=== PATIENT | male | born 1985 | race Caucasian/White ===

== ENCOUNTER 2017-08-17 07:17 | Emergency (ER) | payer MEDICAID, SELFPAY ==
[2017-08-17 07:18] VITALS: BP 115/61; PULSE 112; RESP 18; TEMP 37.1; O2SAT 97; BMI 21.2
[2017-08-17] MEDS: Cephalexin 250 MG Capsule 500 MG PO (07:49)
[2017-08-17] MEDS: Smz/Tmp Ds Tablet 1 TABLET PO (07:49)
[2017-08-17] MEDS: Diphth,Pertuss(Acell),Tet Vac 0.5 ML Vial IM (07:49)
--- NOTE | 2017-08-17 08:01 | ED.DCSUM_ITS ---
- ER Visit Summary Date of Service: 08/17/17 Chief Complaint: Painful red left index finger status post injury 5 days ago History of Present Illness: The patient is a 32 M who is right-handed presents with pain swelling and redness left index finger. Onset 5 days ago after injury. He complains of pain and pressure. He denies paresthesia or anesthesia. Tetanus is unknown. He reports no allergies to antibiotics. He is on no immunosuppressive agents. He denies a traumatic fever, murmur, SBE, IV drug use or be an immune suppressed. Physical Examination: Vital signs are noted. He is afebrile. Patient has a subcutaneous abscess dorsal surface left index finger over the proximal phalanx. There is erythema and fluctuance. There is no lymphangitis, epitrochlear or axillary lymphadenopathy. He does not have pain with passive flexion or extension of the digit. There is no pain to palpation over the extensor and decide tendon dorsal surface of the hand. Capillary refill is normal. Sensation is normal. Test Results: None Emergency Department Course and Treatment: Tetanus immunization was updated. He received 1 tablet of Bactrim DS and 1 capsule of cephalexin 500 mg p.o. The area was prepped draped sterile manner. The area was anesthetized by digital block and local infiltration. An incision was made with 15 blade. There was free flow of thick purulent material. Blunt dissection was undertaken with more drainage appreciated. The cavity was irrigated. A wick was placed. The wound was dressed. Treatment Plan: Prescription for Bactrim DS and cephalexin 500 mg [address] referral to Dr[address] Mcallister who was on-call at the time patient arrived. Has been informed to call office today to be seen in 2 days for wound check. Disposition: Discharged to home in stable and improved condition Impression: 1. Subcutaneous abscess left index finger status post I&D This note was generated with [employer] dictation software. It may contain incorrect words, spelling, and punctuation that were not noted in review of the chart prior to signing ED Disposition - Plan for ED Patient: Disposition: Home or Assisted Living Chief Complaint: Abscess Instructions: ED Abscess IandD Prescriptions: Smz/Tmp Ds [Bactrim Ds] 1 tab PO BID #14 tab Cephalexin [Keflex] 500 mg PO 4X/DAY #28 cap Referrals: Care Physician,No Primary [Primary Care Provider] - Ewelina Mcallister DO [STAFF PHYSICIAN] - 2 Days for wound check
[2017-08-17 08:12] VITALS: PULSE 122; RESP 18; O2SAT 100
[2017-08-17] MEDS: Naproxen 250 MG Tablet 500 MG PO (08:20)
--- NOTE | 2017-08-17 08:24 | ED.RN ---
0815-Dr. Tyler notified of patient c/o pain. Verbal order received for pain medication prior to departing ED.
== END 2017-08-17 08:22 | disposition home or self-care (01) ==
LOC: ED 08:03
PROVIDERS: Emergency Provider Emergency Medicine
DX: L02.512 Cutaneous abscess of left hand (principal); B96.89 Other specified bacterial agents as the cause of diseases classified elsewhere; Z72.0 Tobacco use
CPT/HCPCS: 26010; 10060; 90715; 99281

== ENCOUNTER 2017-09-12 10:13 | Emergency (ER) | payer MEDICAID, SELFPAY ==
[2017-09-12 10:15] VITALS: BP 103/50; PULSE 109; RESP 16; TEMP 36.4; O2SAT 98; BMI 22.0
--- NOTE | 2017-09-12 10:34 | EKG12_ITS ---
Test Reason : MENTAL HEALTH Blood Pressure : / mmHG Vent. Rate : 079 BPM Atrial Rate : 079 BPM P-R Int : 138 ms QRS Dur : 088 ms QT Int : 364 ms P-R-T Axes : 066 070 072 degrees QTc Int : 417 ms Normal sinus rhythm Normal ECG Confirmed by BG GRAY, OLIVIA ([id number]), editorial intern BRISA BREWER ([id number]) on 09/16/2017 12:56:16 PM Referred By: PETER Confirmed By:OLIVIA PEDERSON MD
--- NOTE | 2017-09-12 10:42 | RAD_ITS ---
STUDY: X-RAY CHEST REASON FOR EXAM: Male, 32 years old. Chest pain TECHNIQUE: Single AP portable view of the chest. COMPARISON: None. FINDINGS: The lungs are clear and expanded. There is no demonstrated pleural abnormality. Normal size heart. Normal mediastinum and candice. Normal visualized pulmonary arteries. Normal visualized aortic arch and descending thoracic aorta. Normal visualized thoracic spine. Normal visualized ribs, clavicles, and shoulders. There is no demonstrated abnormality of the visualized soft tissue structures of the upper abdomen. RAD/Chest 1 View (Portable) IMPRESSION: Normal x-ray examination of the chest. Electronically Signed: Leidy Alba MD at 11:41 EDT Tel , Service support ,
[2017-09-12 10:53] LABS: Absolute Lymphocyte Count 1.74 X10^3/ul (0.83-4.51); Absolute Neutrophil Count 7.2 X10^3/uL (2.0-7.7); Basophil# 0.03 X10^3/uL; Basophil% 0.3 % (0-1); Eosinophil# 0.41 X10^3/uL; Hematocrit 45.6 % (40-54); Hemoglobin 15.5 g/dl (13.0-16.5); Lymphocyte # 1.74 X10^3/ul (4.0); Lymphocyte % 16.9 % (19-41); Mean Corpuscular Hgb 31.1 pg (27.0-32.0); Mean Corpuscular Volume 91.4 fL (80-94); Mean Platelet Vol. 10.2 fl (6.2-12.0); Monocyte# 0.85 X10^3/uL; Monocyte% 8.3 % (0-10); Neutrophil # 7.17 X10^3/uL (2.7-7.7); Neutrophil % 69.6 % (47-70); Platelet Count 214 K/mm3 (150-450); RBC Distribution Width CV 13.8 % (11.6-14.6); Red Blood Count 4.99 M/mm3 (4.6-6.2); White Blood Count 10.3 K/mm3 (4.4-11.0)
[2017-09-12 10:56] LABS: POSITIVE COUNT NO; POSITIVE DIFFERENTIAL NO; POSITIVE MORPHOLOGY NO
[2017-09-12] MEDS: Ondansetron 4 MG/2 ML Vial IV (10:57)
[2017-09-12] MEDS: 0.9% Normal Saline 1,000 ML 1000 ML IV (10:57)
[2017-09-12 11:06] LABS: Albumin, Serum 3.6 g/dL (3.2-5.0); BUN 13 mg/dL (7-18); BUN/Creat Ratio 13.4 RATIO (10-20); Calcium,Total 8.2 mg/dL (8.5-10.1); Creatinine, Serum 0.97 mg/dL (0.70-1.30); EST Glomerular Filtration Rate 94 mL/min (>60); Est Glom Filt Rate - Afr Amer 114 mL/min (>60); Estimated Creatinine Clearance 99.69 ml/min; Globulin 4.5 g/dL (2.2-4.2); Glucose 121 mg/dL (74-106); Protein, Total 8.1 g/dL (6.4-8.2)
[2017-09-12 11:07] LABS: AST(SGOT) 63 U/L (15-37); Alanine Aminotransfer ALT/SGPT 173 U/L (16-61); Alkaline Phosphatase 78 U/L (45-117); Anion Gap 8 (5-15); Bilirubin, Direct 0.31 mg/dL (0.00-0.30); Chloride 109 mmol/L (98-107); Potassium 3.4 mmol/L (3.5-5.1); Sodium Level 141 mmol/L (136-145)
[2017-09-12 11:17] LABS: Alcohol, Blood (Medical)-Serum < 3.0 mg/dL
[2017-09-12 12:05] LABS: Amphetamine Urine VISTA NEGATIVE (<1000 ng/mL); Barbiturate Urine VISTA NEGATIVE (< 200 ng/mL); Benzodiazepine Urine VISTA NEGATIVE (< 200 ng/mL); Cocaine Urine VISTA POSITIVE (< 300 ng/mL); Ecstacy Urine VISTA NEGATIVE (< 500 ng/mL); Methadone Urine VISTA NEGATIVE (< 300 ng/mL); PCP Urine VISTA NEGATIVE (< 25 ng/mL); THC Urine VISTA POSITIVE (< 50 ng/mL); Vista UDS pH Range 5
--- NOTE | 2017-09-12 12:30 | ED.RN ---
CALLED [facility]; WILL HAVE SOMEONE WITH CRISIS CALL US BACK
[2017-09-12 12:43] VITALS: BP 127/59; PULSE 101; RESP 16; O2SAT 99
--- NOTE | 2017-09-12 12:56 | ED.RN ---
SHAUNA WITH CRISIS IS HERE TO EVAL PT
[2017-09-12 13:49] VITALS: BP 127/64; PULSE 60; RESP 18; O2SAT 97
[2017-09-12 15:15] VITALS: BP 118/80; PULSE 63; RESP 16; O2SAT 97
--- NOTE | 2017-09-12 15:47 | ED.VISSUMM ---
- ER Visit Summary Date of Service: 09/12/17 Chief Complaint: Suicidal ideation History of Present Illness: The patient is a 32 M with history of bipolar disorder and schizophrenia. Patient states he has been off his psych meds for a while. He has been having visual and auditory hallucinations of violence. He states he cannot get his meds regulated and needs help. He does report feeling suicidal stating he would rather be then see and hear these things. He does also complain of nausea, vomiting, diarrhea that started last night. He developed some right upper chest pain today. Patient does have a history of hepatitis C. Physical Examination: Vital signs are unremarkable. Patient is in no acute distress and nontoxic appearing. Head neck examination is unremarkable. Heart is regular rate and rhythm. Lung sounds are clear. Abdomen is soft and nontender. Psychiatric evaluation reveals poor eye contact. He does admit to suicidal thoughts along with the auditory and visual hallucinations as mentioned. Test Results: Chest x-ray is unremarkable. EKG is sinus at 79 with no sign of ischemia. CBC is normal. Chemistry studies reveal a slightly low potassium at 3.4. LFTs revealed ALT of 173 and an AST of 63. Total bili is 1.40 direct bili 0.31. LFTs are actually improved when compared to prior labs from May. Troponin is less than 0.02. Tox screen is positive for cocaine and cannabinoids. EtOH is negative. Emergency Department Course and Treatment: Patient was given IV fluids and Zofran here. He has had no further vomiting. Crisis evaluated the patient and he has been accepted in transfer at [facility] for [facility]ry [place]. Treatment Plan: [] Disposition: Transfer Impression: 1. Vomiting, resolved 2. Suicidal ideation 3. Visual and auditory hallucinations This note was generated with [employer] software. It may contain incorrect words, spelling, and punctuation that were not noted in review of the chart prior to signing ED Disposition - Plan for ED Patient: Chief Complaint: Suicidal Referrals: Care Physician,No Primary [Primary Care Provider] -
[2017-09-12 16:21] VITALS: BP 120/77; PULSE 62; RESP 18; O2SAT 99
[2017-09-12 16:27] VITALS: BP 120/77; PULSE 62; RESP 18; O2SAT 99
== END 2017-09-12 17:55 ==
PROVIDERS: Emergency Provider Emergency Medicine
DX: R45.851 Suicidal ideations (principal); R11.10 Vomiting, unspecified; F31.9 Bipolar disorder, unspecified; F20.9 Schizophrenia, unspecified; Z72.0 Tobacco use
CPT/HCPCS: 71045; 80048; 80076; 80307; 80320; 84484; 85025; 93005; 96361; 96374; 99285; J7030; G0480; J2405

== ENCOUNTER 2017-11-27 17:07 | Emergency (ER) | payer MEDICAID, SELFPAY ==
[2017-11-27 17:09] VITALS: BP 133/79; PULSE 97; RESP 14; TEMP 36.1; O2SAT 96; BMI 21.8
--- NOTE | 2017-11-27 17:38 | ED.DCSUM_ITS ---
- ER Visit Summary Date of Service: 11/27/17 Chief Complaint: [] Suicidal and homicidal ideation History of Present Illness: The patient is a 32 M [] patient stated for last week he felt suicidal and homicidal. He thought about cutting his own wrist with a hatchet and other people. He does have a hatchet per patient. He has not been on his medication since he was discharged from [facility] in [place]. He had a recent admission there for similar symptoms. He has bipolar and schizophrenia. He stated he does not know what psychiatrist discussed the follow-up with. He admitted smoking marijuana today. He said that the only thing that helps him other than medications but has not taken them he said he lost his medicines. Physical Examination: [] Vital signs reviewed General: Well-nourished well-developed Head: Normocephalic atraumatic Eyes: Pupils equal round and reactive to light extraocular movements intact ENT: TMs clear no hemotympanum no trauma Neck: Nontender full range of motion Cardiovascular: Regular rate rhythm no murmurs normal S1-S2 Respiratory: No distress clear to auscultation bilaterally chest nontender Abdomen: Soft nontender nondistended normal bowel sounds no masses Back: Nontender no CVA tenderness Extremities: Nontender active range of motion ?4 extremities no trauma Skin: Normal color no trauma Neuro alert oriented cranial nerves II through XII intact normal strength sensation reflexes Test Results: [] Emergency Department Course and Treatment: [] Patient has suicidal thoughts with a history of bipolar schizophrenia. Lab work will be obtained. Will be seen by crisis Treatment Plan: [] Disposition: [] Impression: [] Suicidal ideation Homicidal ideation Schizophrenia with delusions This note was generated with [email or web address] dictation software. It may contain incorrect words, spelling, and punctuation that were not noted in review of the chart prior to signing ED Disposition - Plan for ED Patient: Chief Complaint: Suicidal Referrals: Care Physician,No Primary [Primary Care Provider] -
[2017-11-27 17:56] LABS: Absolute Lymphocyte Count 2.58 X10^3/ul (0.83-4.51); Absolute Neutrophil Count 5.6 X10^3/uL (2.0-7.7); Basophil# 0.02 X10^3/uL; Basophil% 0.2 % (0-1); Eosinophils% 2.3 % (0-5); Hematocrit 44.9 % (40-54); Hemoglobin 14.9 g/dl (13.0-16.5); Lymphocyte # 2.58 X10^3/ul (4.0); Lymphocyte % 29.1 % (19-41); Mean Corp Hgb Conc 33.2 g/gl (32-36); Mean Corpuscular Volume 90.3 fL (80-94); Mean Platelet Vol. 9.9 fl (6.2-12.0); Monocyte# 0.47 X10^3/uL; Monocyte% 5.3 % (0-10); Neutrophil # 5.57 X10^3/uL (2.7-7.7); Neutrophil % 62.6 % (47-70); Platelet Count 226 K/mm3 (150-450); RBC Distribution Width CV 13.6 % (11.6-14.6); RBC Distribution Width SD 44.4 fl (35.1-43.9); Red Blood Count 4.97 M/mm3 (4.6-6.2); White Blood Count 8.9 K/mm3 (4.4-11.0)
[2017-11-27 18:01] LABS: POSITIVE COUNT NO; POSITIVE DIFFERENTIAL NO; POSITIVE MORPHOLOGY NO
--- NOTE | 2017-11-27 18:06 | ED.RN ---
PAULO WITH CRISIS AWARE THAT PT IS HERE AND WILL NEED SEEN
[2017-11-27 18:15] LABS: Anion Gap 4 (5-15); BUN 16 mg/dL (7-18); BUN/Creat Ratio 16.9 RATIO (10-20); Calcium,Total 8.6 mg/dL (8.5-10.1); Chloride 107 mmol/L (98-107); Creatinine, Serum 0.94 mg/dL (0.70-1.30); EST Glomerular Filtration Rate 97 mL/min (>60); Est Glom Filt Rate - Afr Amer 117 mL/min (>60); Estimated Creatinine Clearance 101.96 ml/min; Glucose 75 mg/dL (74-106); Potassium 3.9 mmol/L (3.5-5.1); Sodium Level 138 mmol/L (136-145)
[2017-11-27 18:18] LABS: Amphetamine Urine VISTA POSITIVE (<1000 ng/mL); Barbiturate Urine VISTA NEGATIVE (< 200 ng/mL); Benzodiazepine Urine VISTA NEGATIVE (< 200 ng/mL); Cocaine Urine VISTA NEGATIVE (< 300 ng/mL); Ecstacy Urine VISTA NEGATIVE (< 500 ng/mL); Methadone Urine VISTA NEGATIVE (< 300 ng/mL); PCP Urine VISTA NEGATIVE (< 25 ng/mL); THC Urine VISTA POSITIVE (< 50 ng/mL); Vista UDS pH Range 5
[2017-11-27 18:53] LABS: Alcohol, Blood (Medical)-Serum < 3.0 mg/dL
[2017-11-27 19:00] VITALS: RESP 16
--- NOTE | 2017-11-27 19:41 | EKG12_ITS ---
Test Reason : [facility] [place] Pressure : / mmHG Vent. Rate : 078 BPM Atrial Rate : 078 BPM P-R Int : 130 ms QRS Dur : 088 ms QT Int : 382 ms P-R-T Axes : 052 054 066 degrees QTc Int : 435 ms Normal sinus rhythm Normal ECG Confirmed by BG GRAY, OLIVIA ([id number]), editor farm journal BRISA BREWER ([id number]) on 11/30/2017 3:37:39 PM Referred By: MESERET Confirmed By:OLIVIA PEDERSON MD
[2017-11-27 20:06] LABS: Red Blood Cells-Urine 0 SEEN /hpf (0-5)
[2017-11-27] MEDS: LORazepam 1 MG Tablet PO (20:18)
[2017-11-27 20:34] LABS: Color, Urine Yellow (Yellow); Glucose, Dipstick Normal (Normal); Ketone-Dipstick 5 mg/dl (Negative); Leukocyte Esterase-Dipstick 25 /ul (Negative); Nitrite-Dipstick Negative (Negative); Occult Blood-Urine Negative /ul (Negative); Protein-Dipstick 15 mg/dl (Negative); Specific Gravity, Urine 1.025 (1.002-1.030); Urine Clarity Clear (Clear); Urine Urobilinogen 4 mg/dl (Normal)
[2017-11-27 20:35] LABS: Urine Bilirubin Dipstick 1 mg/dL (Negative)
[2017-11-27 20:39] LABS: AST(SGOT) 100 U/L (15-37); Alanine Aminotransfer ALT/SGPT 231 U/L (16-61); Albumin, Serum 3.9 g/dL (3.2-5.0); Alkaline Phosphatase 80 U/L (45-117); Bilirubin, Direct 0.36 mg/dL (0.00-0.30); Globulin 4.6 g/dL (2.2-4.2); Protein, Total 8.5 g/dL (6.4-8.2)
[2017-11-27 20:49] LABS: Bacteria 1+ /hpf (None Seen); Mucous, Urine 2+ /hpf (<or=2+); Squamous Epithelial Cells - UA 0-5 SEEN /hpf (0-5); White Blood Cells 0-5 SEEN /hpf (0-5)
[2017-11-27 21:05] VITALS: RESP 14
[2017-11-27 22:15] VITALS: RESP 16
[2017-11-27 22:52] VITALS: BP 126/52; PULSE 68; RESP 15; O2SAT 97
[2017-11-28] VITALS (16 sets, daily range): BP systolic 100–123; BP diastolic 53–74; PULSE 65–87; RESP 13–18; O2SAT 96–99
--- NOTE | 2017-11-28 03:03 | ED.RN ---
PER HOME PERFORMANCE LABORER PAULO GILBERT. PT INFORMATION SENT TO [facility]. CRISIS IS TO FOLLOW UP WITH [facility] IN THE MORNING TO SEE IF THEY WILL ACCEPT PT FOR HOSPITALIZATION.
[2017-11-28] MEDS: Ziprasidone IM 20 MG/ML VIAL IM (08:29)
--- NOTE | 2017-11-28 09:48 | ED.RN ---
SHAUNA BARRETT WITH CRISIS CALLED AT [id number] WOULD LIKE PATIENT REEVALUATED. SHAUNA WILL BE HERE AFTER HE IS FINISHED WITH HIS 1000 APPOINTMENT TO REEVALUATE HIM.
--- NOTE | 2017-11-28 12:57 | ED.RN ---
SHAUNA FROM CRISIS STATED PATIENT WAS ACCEPTED AT [facility] AND WE ARE WAITING ON A BED.
--- NOTE | 2017-11-28 17:37 | ED.RN ---
LEFT A MESSAGE AT [facility] TO CALL BACK WITH APPROXIMATE TIME FOR A BED ASSIGNMENT AT 1730
--- NOTE | 2017-11-28 23:53 | NURSING ---
UPDATED PT ON PLACEMENT AT [facility]. PROVIDED NATALI NELSON AND [employer].
[2017-11-29 00:29] VITALS: BP 118/67; PULSE 72; RESP 17; O2SAT 97
[2017-11-29 00:30] VITALS: BP 118/67; PULSE 72; RESP 17; O2SAT 97
== END 2017-11-29 00:32 ==
PROVIDERS: Emergency Provider Emergency Medicine
DX: R45.851 Suicidal ideations (principal); R45.850 Homicidal ideations; F20.9 Schizophrenia, unspecified; F12.10 Cannabis abuse, uncomplicated; F31.9 Bipolar disorder, unspecified; B19.20 Unspecified viral hepatitis C without hepatic coma; Z91.14 Patient's other noncompliance with medication regimen; Z72.0 Tobacco use
CPT/HCPCS: 36415; 80048; 80076; 80307; 80320; 81001; 85025; 93005; 96372; 99284; G0480; J3486

== ENCOUNTER 2017-12-15 11:55 | Emergency (ER) | payer MEDICAID, SELFPAY ==
[2017-12-15] VITALS (8 sets, daily range): BP systolic 99–179; BP diastolic 60–111; PULSE 62–129; RESP 14–19; TEMP 36.5; O2SAT 95–100; BMI 21.4
--- NOTE | 2017-12-15 12:27 | EKG12_ITS ---
Test Reason : Blood Pressure : / mmHG Vent. Rate : 104 BPM Atrial Rate : 104 BPM P-R Int : 134 ms QRS Dur : 092 ms QT Int : 352 ms P-R-T Axes : 071 074 059 degrees QTc Int : 462 ms Sinus tachycardia Otherwise normal ECG Confirmed by BG GRAY, OLIVIA ([id number]), editor school photograph BRISA BREWER ([id number]) on 12/19/2017 2:24:08 PM Referred By: RAJAN/ABRAM Confirmed By:OLIVIA PEDERSON MD
--- NOTE | 2017-12-15 12:33 | NURSING ---
NO OLD EKGS
[2017-12-15] MEDS: LORazepam 2 MG/ML Syringe IM (12:56)
[2017-12-15] MEDS: Ziprasidone IM 20 MG/ML VIAL IM (12:56)
[2017-12-15] MEDS: 0.9% Normal Saline 1,000 ML 1000 ML IV ×2 (13:35→14:19)
[2017-12-15 13:42] LABS: Absolute Lymphocyte Count 1.88 X10^3/ul (0.83-4.51); Absolute Neutrophil Count 9.2 X10^3/uL (2.0-7.7); Basophil# 0.05 X10^3/uL; Basophil% 0.4 % (0-1); Eosinophil# 0.13 X10^3/uL; Eosinophils% 1.1 % (0-5); Hematocrit 37.9 % (40-54); Hemoglobin 13.5 g/dl (13.0-16.5); Lymphocyte # 1.88 X10^3/ul (4.0); Lymphocyte % 15.3 % (19-41); Mean Corp Hgb Conc 35.6 g/gl (32-36); Mean Corpuscular Hgb 30.8 pg (27.0-32.0); Mean Corpuscular Volume 86.3 fL (80-94); Mean Platelet Vol. 9.7 fl (6.2-12.0); Monocyte# 1.05 X10^3/uL; Monocyte% 8.5 % (0-10); Neutrophil # 9.16 X10^3/uL (2.7-7.7); Neutrophil % 74.3 % (47-70); Platelet Count 250 K/mm3 (150-450); RBC Distribution Width CV 12.7 % (11.6-14.6); RBC Distribution Width SD 39.2 fl (35.1-43.9); Red Blood Count 4.39 M/mm3 (4.6-6.2); White Blood Count 12.3 K/mm3 (4.4-11.0)
[2017-12-15 13:47] LABS: POSITIVE COUNT NO; POSITIVE DIFFERENTIAL NO; POSITIVE MORPHOLOGY NO
[2017-12-15 13:58] LABS: ALB/GLOB Ratio 0.9 RATIO (0.9-2.4); AST(SGOT) 88 U/L (15-37); Alanine Aminotransfer ALT/SGPT 196 U/L (16-61); Albumin, Serum 3.5 g/dL (3.2-5.0); Alkaline Phosphatase 63 U/L (45-117); Anion Gap 11 (5-15); BUN 14 mg/dL (7-18); Calcium,Total 8.6 mg/dL (8.5-10.1); Chloride 108 mmol/L (98-107); Creatinine, Serum 1.08 mg/dL (0.70-1.30); EST Glomerular Filtration Rate 83 mL/min (>60); Est Glom Filt Rate - Afr Amer 100 mL/min (>60); Estimated Creatinine Clearance 92.42 ml/min; Globulin 3.9 g/dL (2.2-4.2); Glucose 103 mg/dL (74-106); Potassium 3.3 mmol/L (3.5-5.1); Protein, Total 7.4 g/dL (6.4-8.2); Sodium Level 142 mmol/L (136-145)
[2017-12-15 14:09] LABS: Alcohol, Blood (Medical)-Serum < 3.0 mg/dL
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
[2017-12-15 14:50] LABS: Bacteria 0 SEEN /hpf (None Seen); Mucous, Urine 0 SEEN /hpf (<or=2+); Squamous Epithelial Cells - UA 0 SEEN /hpf (0-5)
[2017-12-15 14:58] LABS: Color, Urine Yellow (Yellow); Glucose, Dipstick Normal (Normal); Ketone-Dipstick Negative (Negative); Leukocyte Esterase-Dipstick Negative /ul (Negative); Nitrite-Dipstick Negative (Negative); Occult Blood-Urine 25 /ul (Negative); Protein-Dipstick 30 mg/dl (Negative); Specific Gravity, Urine 1.015 (1.002-1.030); Urine Bilirubin Dipstick Negative (Negative); Urine Clarity Clear (Clear); Urine Urobilinogen Normal (Normal)
[2017-12-15 15:08] LABS: Amorphous Sediment 1+; Red Blood Cells-Urine 0-5 SEEN /hpf (0-5); White Blood Cells 0-5 SEEN /hpf (0-5)
[2017-12-15 15:12] LABS: Amphetamine Urine VISTA POSITIVE (<1000 ng/mL); Barbiturate Urine VISTA NEGATIVE (< 200 ng/mL); Benzodiazepine Urine VISTA NEGATIVE (< 200 ng/mL); Cocaine Urine VISTA NEGATIVE (< 300 ng/mL); Ecstacy Urine VISTA NEGATIVE (< 500 ng/mL); Methadone Urine VISTA NEGATIVE (< 300 ng/mL); PCP Urine VISTA NEGATIVE (< 25 ng/mL); THC Urine VISTA POSITIVE (< 50 ng/mL); Vista UDS pH Range 6
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
[2017-12-15 17:28] LABS: Reflex Lactate? Y
[2017-12-15 19:38] LABS: Lactic Acid 0.8 mmol/L (0.4-2.0)
[2017-12-16 00:46] VITALS: BP 105/62; PULSE 64; RESP 18; O2SAT 97
[2017-12-16 01:23] VITALS: BP 100/61; PULSE 77; RESP 18; O2SAT 96
--- NOTE | 2017-12-16 03:14 | NURSING ---
PT STATING THAT HE WANTS TO BE SEEN BY CRISIS, DID NOT SPECIFY WHY, STATES THAT HE IS IN A PANIC. PT DID NOT STATE THAT HE WAS SUICIDAL OR HOMICIDAL.
[2017-12-16 03:16] VITALS: BP 107/68; PULSE 75; RESP 16; O2SAT 98
--- NOTE | 2017-12-16 05:19 | NURSING ---
CRISIS WAS CALLED AND LENI IS COMING IN TO EVAL THE PT.
[2017-12-16 05:21] VITALS: BP 109/86; PULSE 81; RESP 16; O2SAT 97
--- NOTE | 2017-12-16 07:14 | NURSING ---
BETWEEN THE DOCTOR AND THE CRISIS COUNSELOR THEY AGREED THAT THE PT CAN WALK OUT OF HERE. [facility] DID NOT WANT TO TAKE HIM AGAIN BECAUSE OF THE ISSUES HE HAD WITH THEM WHEN HE WAS RECENTLY ADMITTED. SO WE GAVE THE PT BACK HIS CLOTHES AND STATES THAT HE IS GOING TO WALK OUT OF HERE. GAVE HIM SHORTS AND A PAPER SCRUB TOP
[2017-12-16 07:16] VITALS: BP 123/78; PULSE 78; RESP 16; O2SAT 97
--- NOTE | 2017-12-16 07:37 | ED.RN ---
pt remains very argumentative and verbally combative. mental health [facility] and this rn [id number] to help pt find resources needed. pt wants to go to [facility]. pt aware we do not offer this. pt begins to yell about this facility not helping him. pt becomes increasingly aggressive. pd called. pt provided with 2 options. pt can be cooperative and wait here while mh attempts to get pt back to [facility]. pt not suicidal or homicidal. [facility] not sure they can get pt there. pt refuses. pt offered then to be dc'd home. pt once again becomes argumentative and yells. [place] police step in and offer pt same two options. pt storms out of department
== END 2017-12-16 07:42 | disposition home or self-care (01) ==
LOC: ED 12:41
PROVIDERS: Emergency Provider Emergency Medicine
DX: F12.10 Cannabis abuse, uncomplicated (principal); F15.10 Other stimulant abuse, uncomplicated; R33.9 Retention of urine, unspecified; F98.8 Other specified behavioral and emotional disorders with onset usually occurring in childhood and adolescence; Z72.0 Tobacco use
CPT/HCPCS: 36415; 51702; 70450; 80053; 80307; 80320; 81001; 83605; 84484; 85025; 93005; 96360; 96372; 99285; J7030; A4216; G0480; J3486

== ENCOUNTER → 2020-12-01 12:32 | Outpatient (CLI) | payer MEDICARE, SELFPAY ==
--- NOTE | 2020-12-01 12:34 | US_ITS ---
STUDY: SUPERFICIAL ULTRASOUND - LEFT WRIST REASON FOR EXAM: Male, 35 years old. GANGLION CYST OF DORSUM OF L WRIST TECHNIQUE: A superficial ultrasound was performed with real-time and static napier-scale imaging. COMPARISON: None. FINDINGS: Multiple longitudinal and transverse ultrasound images of the dorsal aspect of the left wrist demonstrate a 2 x 6 mm oval anechoic mass with increased through transmission consistent with a cystic mass likely a ganglion. US/Ext Non Vasc Limited/Soft Tiss IMPRESSION: Ultrasound confirms a 6 mm cystic mass, likely a ganglion. MRI may be useful. Electronically Signed: Alverto Sibley MD at 7:56 EDT Tel , Service support ,
== END ==
PROVIDERS: Referring Provider Nurse Practitioner Primary Care; Visit Provider Nurse Practitioner Primary Care
DX: M67.432 Ganglion, left wrist (principal)
CPT/HCPCS: 76882